=== PATIENT | male | born 1980 | race Caucasian/White ===

== ENCOUNTER 2019-01-26 15:22 | Emergency (ER) | payer SELFPAY ==
[~2019-01-26] VITALS: Ht 185.4 cm; Wt 76.0 kg
[2019-01-26 15:40] VITALS: BP 139/90
--- NOTE | 2019-01-26 15:46 | NUR ---
ROSHAN GUZMÁN, AT BEDSIDE TO EVALUATE PT.
[2019-01-26] MEDS ORDERED: KETOROLAC 30 MG/1 ML ONE (16:23)
[2019-01-26] MEDS ORDERED: BACITRACIN ZINC OINT 500U/GM, 0.9 GM ONE (16:26)
--- NOTE | 2019-01-26 16:27 | NUR ---
EDT at bedside to irrigate wound.
[2019-01-26] MEDS ORDERED: KETOROLAC 30 MG/1 ML IM ONE (16:30)
--- NOTE | 2019-01-26 17:19 | NUR ---
Patient/Caregiver given discharge instructions and they have confirmed that they understand the instructions. Patient ambulatory with steady gait.
== END 2019-01-26 17:21 | disposition home or self-care (01) ==
LOC: ED 17:15
DX: L03.011 Cellulitis of right finger (principal); L03.012 Cellulitis of left finger; G89.11 Acute pain due to trauma; M79.642 Pain in left hand; M79.641 Pain in right hand
CPT/HCPCS: 99283